=== PATIENT | female | born 1960 | race Caucasian/White ===

== ENCOUNTER 2024-02-03 10:48 | Emergency (ER) | payer MEDICARE, SELFPAY ==
[2024-02-03] VITALS (37 sets, daily range): BP systolic 111–166; BP diastolic 53–78; PULSE 66–92; RESP 9–22; TEMP 35.6; O2SAT 98–100
--- NOTE | 2024-02-03 10:45 | RT.EKG_ITS ---
APPROVED REPORT Exam: Resting ECG Reason for Exam: seizure Patient Location: E HR:70 bpm ECG Measurements Heart Rate 70 AXIS PA 177 P 63 QRSd 88 QRS 50 QT 413 T 4 QTc 447 Conclusion Sinus rhythm...normal P axis, V-rate 60- 99 Narrow complex normal sinus rhythm at a rate of 70. Normal axis. Intervals within normal limits. T wave flattening in aVF. T wave inversion in lead III. No acute injury pattern. No prior for edwige rison.
--- NOTE | 2024-02-03 11:15 | DI.CT_ITS ---
Exam(s) CT HEAD WO EXAM: CT HEAD WO CLINICAL HISTORY: new onset seizure, NL neuro exam. TECHNIQUE: Imaging Protocol: Axial computed tomography images with coronal and sagittal reformatted images were created and reviewed COMPARISON: No exams were available for comparison FINDINGS: Ventricles and Extra axial spaces: Normal in size and morphology for the patient's age. Hemorrhage: None. Cerebral parenchyma: Normal. No acute territorial infarct. No mass effect is identified. Midline shift: None. Brainstem/Cerebellum: Normal. Calvarium: Normal. Visualized Paranasal sinuses/Mastoids: Clear. Soft Tissues: Unremarkable. IMPRESSION: No acute intracranial process. RADIATION DOSE DELIVERED: 577.46mGy.cm Total DLP DATA REPOSITORY: All CT scans at this facility are submitted to the National Radiology Data Registry (NRDR) Dose Index Registry (DIR) with the [employer] ([employer]). RADIATION OPTIMIZATION: All CT scans at this facility use at least one of these dose optimization te chniques: automated exposure control; mA and/or kV adjustment per patient size (includes targeted exa ms where dose is matched to clinical indication); or iterative reconstruction.
--- NOTE | 2024-02-03 11:15 | DI.RAD_ITS ---
Exam(s) XR CHEST 2V PA LATERAL EXAM: XR CHEST 2V PA LATERAL CLINICAL HISTORY: new onset seizure TECHNIQUE: 2D digital imaging was performed of the chest. Two images were obtained. PA and lateral views were obtained. COMPARISON: No exams were available for comparison FINDINGS: MEDIASTINUM: Normal. HEART: Normal. PULMONARY VASCULATURE: Normal. LUNGS: The lungs are hyperinflated with flattened diaphragms suggesting underlying COPD. No focal co nsolidating infiltrates are present. PLEURAL SPACE: No pleural effusion or pneumothorax. BONE:Within normal limits for the patient's age. OTHER FINDINGS:Normal. IMPRESSION: No acute pulmonary findings. DATA REPOSITORY: RADIATION DOSE DELIVERED:
--- NOTE | 2024-02-03 11:28 | W.ED.GENAD ---
Discharge Plan Disposition Patient Disposition: Home Condition: Stable Discharge Details Clinical Impression: Seizure Primary Care Provider: Laura,Local ED Provider: Uma Rasheed Home Meds and New Rx's Prescriptions: New levetiracetam 1,000 mg tablet 1,000 mg PO BID Qty: 60 0RF levetiracetam [Keppra] 1,000 mg tablet 1,000 mg PO BID Qty: 60 0RF Discharge Instructions Instructions: New-Onset Seizure in Adults (ED) Additional Instructions: Please call your primary care provider first thing Monday morning to schedule follow-up appointment and for referral to a neurologist. You may be able to reach out to a neurologist in your local area to schedule a follow-up appointment, this may depend on your insurance whether or not you need a primary care referral placed. I encourage you to take the Keppra as prescribed twice a day. Avoid bathing/swimming, climbing ladders, driving, or any potentially dangerous activities until you are advised otherwise by your neurologist. Be sure to get plenty of sleep, eat regular meals, and stay well-hydrated. Return to emergency care if you develop any new seizures, severe headache, vision changes, or if you are very worried and need to be rechecked again immediately HPI General Date/Time Provider Initiated Documentation: 02/03/24 11:03. HPI Narrative: Ariela is a 63-year-old female with history of osteoporosis and remote history of seizures (unclear etiology, at least 20 years since last seizure, not currently on medication) who presents to the emergency department today for seizure. She reports that she started feeling lightheaded/dizzy when she got out of the car, sat down to play with the puppies at the dog [employer] house, then woke up in the ambulance. Her Luis reports that she had 5 to 10-minute of rigidity of limbs, with limb jerking. She was breathing spontaneously, no cyanosis. No head injury, emesis or tongue biting. She did have urinary incontinence, no loss of bowel control. Immediately after seizure she did appear disoriented, not responding to questions. This has gradually improved. She reports she has recently been in good health, denies fever/chills, headache, chest pain, shortness of breath, cough, nausea/vomiting, change in p.o. intake, new medications, change in caffeine intake from baseline, change in bowel or bladder function, leg weakness/numbness. Her mother had seizure disorder, was on Dilantin. Ariela does not recall what medications she took while she was having seizures, says it has been a long time since she is seeing neurologist. She currently reports that she feels a little bit lightheaded/out of it. Luis is at bedside. They live in [place]. Related Data Home Medications Medication Instructions Recorded Confirmed levetiracetam 1,000 mg tablet 1,000 mg PO BID #60 tabs 02/03/24 levetiracetam 1,000 mg tablet 1,000 mg PO BID #60 tabs 02/03/24 (Keppra) Previous Rx's Medication Instructions Recorded levetiracetam 1,000 mg tablet 1,000 mg PO BID #60 tabs 02/03/24 levetiracetam 1,000 mg tablet 1,000 mg PO BID #60 tabs 02/03/24 (Keppra) Allergies Allergy/AdvReac Type Severity Reaction Status Date / Time Penicillins Allergy Skin Rash Verified 02/03/24 10:51 General Stated Complaint: Seizure BEN: 3 Review of Systems Narrative: see HPI Exam Const General: cooperative, healthy appearing, comfortable, no acute distress, well developed and well groomed Nutritional Appearance: average body habitus HENKY Head: normal to inspection Ears: hearing grossly normal bilaterally, external ears normal and TM's normal bilaterally General nose exam: external nose normal Face and sinus: normal facial exam Mouth: oral mucosae normal, lip normal, tongue normal, oropharynx normal and moist mucous membranes Teeth and gingiva: dentition normal Throat: posterior oropharynx normal Eyes Periorbital: periorbital findings normal Eyelids: eyelids normal Pupils: PERRL EOM: EOM intact bilaterally Resp Effort & Inspection: normal respiratory effort and able to speak in complete sentences Auscultation: clear to auscultation bilaterally Cardio Rate: regular rate Rhythm: regular rhythm GI Inspection: normal to inspection Palpation: soft and nontender Skin General skin exam: no rashes or lesions noted Neuro General: patient alert, patient awake, tone normal, moves all extremities, normal light touch, pain and propioception, no focal motor deficits and CN's II-XI intact bilaterally Cranial Nerves: CN's II-XI intact bilaterally, PERRL, EOM intact bilaterally, no nystagmus, facial strength normal, able to rotate head bilaterally and able to elevate shoulders bilaterally Cognition: normal cognition Speech: speech normal Motor: muscle tone normal throughout and strength 5/5 throughout Sensory Exam: no sensory deficits noted DTR's: Rt Patellar: 2+ and Lt Patellar: 2+ Coordination: [id number]-to-[id number] test normal, [id number] test normal and rapid alternating movement UE normal Extrem General: normal to inspection, full ROM and capillary refill normal Course Vital Signs Vital signs: Vital Signs Pulse 81 02/03/24 10:47 Respiratory Rate 16 02/03/24 10:47 Blood Pressure 115/53 L 02/03/24 10:47 Pulse Oximetry 98 02/03/24 10:47 Temperature 35.6 C L 02/03/24 10:54 Temperature Source Skin 02/03/24 10:54 Pulse 81 02/03/24 10:47 Respiratory Rate 16 02/03/24 10:47 Respiratory Effort Normal 02/03/24 10:49 Blood Pressure 115/53 L 02/03/24 10:47 Blood Pressure Position Sitting 02/03/24 10:47 Pulse Oximetry 98 02/03/24 10:47 Oxygen Delivery Method Room Air 02/03/24 10:47 Oxygen Flow Rate 0 02/03/24 10:47 Medical Decision Making Ariela is a 63-year-old female with history of osteoporosis and remote history of seizures (unclear etiology, at least 20 years since last seizure, not currently on medication) who presents to the emergency department today for seizure. She reports that she started feeling lightheaded/dizzy when she got out of the car, sat down to play with the puppies at the dog [employer] house, then woke up in the ambulance. Her Luis reports that she had 5 to 10-minute of rigidity of limbs, with limb jerking. She was breathing spontaneously, no cyanosis. No head injury, emesis or tongue biting. She did have urinary incontinence, no loss of bowel control. Immediately after seizure she did appear disoriented, not responding to questions. This has gradually improved. She reports she has recently been in good health, denies fever/chills, headache, chest pain, shortness of breath, cough, nausea/vomiting, change in p.o. intake, new medications, change in caffeine intake from baseline, change in bowel or bladder function, leg weakness/numbness. Her mother had seizure disorder, was on Dilantin. Ariela does not recall what medications she took while she was having seizures, says it has been a long time since she is seeing neurologist. She currently reports that she feels a little bit lightheaded/out of it. Luis is at bedside. They live in [place]. Physical exam very reassuring. Ariela is alert and oriented, no acute distress. PERRL, EOMs intact. Visual pinto intact. Cranial nerves II through XII intact as tested. No dental damage or lacerations to tongue. Full painless range of motion to neck. Normal finger to finger, rapid alternating movements, [id number], 5 out of 5 muscle strength upper and lower extremities. Easy work of breathing, lung sounds clear bilaterally. Normal heart sounds. Abdomen is soft, nondistended, nontender to palpation. DDx includes was not limited to: Infection, space-occupying lesion, hypoglycemia, epilepsy, electrolyte imbalance, syncope. No red flags concerning for CVA based on lack of other neurological symptoms in history or presentation. I independently interpreted the following results: CBC,, CMP, UA, UDS all unremarkable. EKG reassuring, normal sinus rhythm, rate 70, no changes consistent with acute ischemia. Head CT reassuring, no acute intracranial pathology noted by radiologist. Chest x-ray reassuring, no acute findings noted by radiologist. While in the emergency department Ariela received 2 g IV Keppra. Telehealth neurology consult performed by . Reviewed patient workup, diagnostics, as well as imaging. He recommends continued Keppra 1000 mg twice daily, MRI and EEG outpatient at home in [place]. I did review discharge instructions with patient, including Keppra use and seizure precautions. She and her are agreeable with plan of care Quality:[facility] Health Related Social Needs: No Data to Display [facility] All Active Problems (Updated 02/03/24 @ 14:10 by Uma Wong) Seizure (Acute) Social History Smoking/Tobacco Use Status: Never Smoking risk assessment performed?: Yes Alcohol Intake: never Substance use type: does not use Do you feel safe at home: Yes Do you feel safe in your relationship?: Yes
[2024-02-03 11:44] LABS: Abs Immature Grans 0.03 10^3/uL (0.0-0.06); Absolute Basophil Count 0.04 10^3/uL (0.0-0.2); Absolute Eosinophil Count 0.03 10^3/uL (0.0-0.7); Absolute Lymphocyte Count 0.76 10^3/uL (1.2-3.4); Absolute Monocyte Count 0.29 10^3/uL (0.1-0.8); Absolute Neutrophil Count 4.73 10^3/uL (1.2-6.7); Basophils % 0.7 %; Eosinophils % 0.5 %; HCT 41.1 % (36.0-46.0); HGB 13.9 g/dL (11.2-15.7); Immature Grans % 0.5 %; Lymphocytes % 12.9 %; MCH 30.6 pg (27.0-33.0); MCHC 33.8 % (32.0-36.0); MCV 91 fL (80-95); MPV 10.2 fL (8.0-11.0); Monocytes % 4.9 %; Neutrophils % 80.5 %; Platelet Count 197 10^3/uL (130-400); RBC 4.54 10^6/uL (3.93-5.22); RDW 12.6 % (11.7-14.6); WBC 5.88 10^3/uL (4.4-10.8)
[2024-02-03 12:12] LABS: ALT 22 U/L (14-59); AST 21 U/L (15-37); Albumin 4.1 g/dL (3.4-5.0); Alkaline Phosphatase 43 U/L (46-116); Anion Gap 11.5 mmol/L (3-11); BUN 14 mg/dL (7-18); Bilirubin, Total 0.6 mg/dL (0.2-1.0); CO2 26.5 mmol/L (21.0-32.0); CREATININE 0.7 mg/dL (0.55-1.02); Calcium 9.1 mg/dL (8.5-10.1); Chloride 101 mmol/L (98-107); Estimated GFR 95.92 (mL/min/1.73m2); Glucose 102 mg/dL (74-106); Magnesium 2.1 mg/dL (1.8-2.4); Potassium 3.9 mmol/L (3.5-5.1); Sodium 139 mmol/L (136-145); TSH (W/Ref FT4) 3.41 uIU/mL (0.36-3.74); Total Protein 6.9 g/dL (6.4-8.2)
--- NOTE | 2024-02-03 12:41 | DI.VRAD_ITS ---
PROCEDURE INFORMATION: Exam: CT Head Without Contrast Exam date and time: 02/03/2024 12:12 PM Age: 63 years old Clinical indication: Other: New onset seizure, nl neuro exam TECHNIQUE: Imaging protocol: Computed tomography of the head without contrast. COMPARISON: No relevant prior studies available. FINDINGS: Brain: Ventricles, sulci are within normal limits. There is no evidence of acute hemorrhage, mass or shift. There is no evidence of an acute cortical or major vascular territory infarct. No abnormal extra-axial collections are identified. Intracranial vascular calcification is noted. There is no hyperdense intravascular thrombus. Cerebral ventricles: No significant ventricular enlargement/hydrocephalus. Right lateral ventricle slightly larger than the left, within normal limits. Paranasal sinuses: No significant sinus opacification or fluid level Mastoid air cells: No significant mastoid opacification Bones: There is no acute bony abnormality Soft tissues: Subcutaneous soft tissues are unremarkable IMPRESSION: No acute findings. Dictated and Authenticated by: Elizabeth Ocampo MD. Ordering:DERECK Eaton MD
--- NOTE | 2024-02-03 12:42 | DI.VRAD_ITS ---
PROCEDURE INFORMATION: Exam: XR Chest Exam date and time: 02/03/2024 12:19 PM Age: 63 years old Clinical indication: Other: Seizure TECHNIQUE: Imaging protocol: Radiologic exam of the chest. Views: 2 views. COMPARISON: No relevant prior studies available. FINDINGS: Lungs: Lung volumes are increased suggestive of COPD. There is no significant airspace consolidation or CHF. Pleural spaces: Unremarkable. No pleural effusion. No pneumothorax. Heart/Mediastinum: Unremarkable. No cardiomegaly. Bones/joints: Unremarkable. IMPRESSION: No acute findings by plain film exam Dictated and Authenticated by: Elizabeth Ocampo MD. Ordering:DERECK Eaton MD
[2024-02-03] MEDS: levETIRAcetam 2,000 MG in Normal Saline 100 ML 400 MG IVPB (12:46)
[2024-02-03 13:45] LABS: Bilirubin Negative (Negative); Blood Negative (Negative); Clarity Clear (Clear); Glucose Negative (Negative); Ketones Trace mg/dL (Negative); Leukocyte Esterase Negative (Negative); Nitrite Negative (Negative); Urobilinogen 0.2 mg/dL (Up to 0.2); pH 6.5 (5-8)
[2024-02-03 13:54] LABS: Bacteria Rare HPF (Negative); Crystals Negative HPF (Negative); Epithelial Cells Rare HPF (Negative); Mucus Moderate (Negative); RBC 0-2 HPF (0-2); WBC 0-2 HPF (0-5)
[2024-02-03 13:55] LABS: C & S Indicated? No
[2024-02-03 13:58] LABS: *AMPHETAMINES SCREEN URINE Negative (Negative); *BARBITURATES SCREEN URINE Negative (Negative); *BENZODIAZEPINES SCREEN URINE Negative (Negative); Cannabinoids THC Negative (Negative); Cocaine Screen,Urine Negative (Negative); METHADONE URINE SCREEN Negative (Negative); OPIATES URINE SCREEN Negative (Negative)
[2024-02-03 14:00] LABS: Tricyclic Antidepressants Negative (Negative)
== END 2024-02-03 14:51 | disposition home or self-care (01) ==
PROVIDERS: Emergency Provider Nurse Practitioner Family
DX: G40.909 Epilepsy, unspecified, not intractable, without status epilepticus (principal)
CPT/HCPCS: 36415; 80053; 80307; 93005; 99285; 70450; 71046; 81003; 81015; 83735; 84443; 85025; 93010; 99284; J1953